=== PATIENT | female | born 1965 | race African-American/Black ===

== ENCOUNTER 2016-12-07 00:02 | Emergency (ER) | payer SELFPAY ==
[~2016-12-07] VITALS: Ht 167.6 cm; Wt 105.0 kg
[~2016-12-07 00:02] MED LIST: AUGMENTIN500 MG OR; CIPRO500 MG OR; LORTAB 1010 MG PO; LORTAB 5 OR; NAPROSYN500 MG PO; NEXIUM40 MG PO; NO; PREVPAC PO; PRILOSEC20 MG PO; PROTONIX20 M1 PO; TENORMIN PO; ULTRAM50 M1 PO
[2016-12-07 01:09] LABS: HEMATOCRIT 38.6 % (37.0-47.0); HEMOGLOBIN 13.1 g/dl (12.0-16.0); IMMATURE GRANULOCYTES 0.3 % (0.0-1.0); MEAN CELL VOLUME 88.9 fL CALC (80.0-100.0); MEAN CORPUSCULAR HGB 30.2 pG CALC (26.0-32.0); MEAN CORPUSCULAR HGB CONC 33.9 g/L CALC (32.0-36.0); NEUT# 3.56 thou/uL (2.00-7.15); RED BLOOD COUNT 4.34 mill/uL (4.20-5.60); RED CELL DISTRI WIDTH 13.6 % (11.5-15.5)
[2016-12-07 01:24] LABS: ALBUMIN 4.3 g/dL (3.2-5.0); ALKALINE PHOSPHATASE 81 u/l (38-126); AMYLASE 118 u/l (30-110); ANION GAP 15 (6-22 (CALC)); BILIRUBIN, TOTAL 0.5 mg/dL (0.0-1.4); BUN 13 mg/dL (7-17); BUN/CREATININE RATIO 18 (12-20 (CALC)); CALCIUM 9.7 mg/dL (8.4-10.2); CARBON DIOXIDE 25 mmol/l (22-30); CHLORIDE 107 mmol/l (95-108); CREATININE 0.7 mg/dL (0.5-1.0); GFR > 60 ML/MIN (>=60 (CALC)); GFR FOR AFR.AMER. > 60 ML/MIN (>=60 (CALC)); GLUCOSE 104 mg/dL (65-105); LIPASE 269 u/l (23-300); POTASSIUM 3.8 mmol/l (3.5-5.1); SGOT/AST 26 u/l (14-36); SGPT/ALT 30 u/l (9-52); SODIUM 143 mmol/l (137-146); TOTAL PROTEIN 8.5 g/dL (6.3-8.2)
[2016-12-07 01:26] LABS: ETHYL ALCOHOL < 10 mg/dl (0-30)
[2016-12-07 01:30] LABS: URINE BILIRUBIN - DIPSTICK NEGATIVE (NEGATIVE); URINE BLOOD DIPSTICK TRACE-LYSED (NEGATIVE); URINE CLARITY SLIGHT CLOUDY; URINE COLOR YELLOW; URINE GLUCOSE - DIPSTICK NEGATIVE (NEGATIVE); URINE KETONE NEGATIVE (NEGATIVE); URINE NITRITE - DIPSTICK NEGATIVE (Negative); URINE PH 6.5 (4.5-8.0); URINE PROTEIN - DIPSTICK NEGATIVE (NEG-TRACE); URINE UROBILINOGEN - DIPSTICK 0.2 E.U./dL (0.2)
[2016-12-07 01:34] LABS: URINE LEUK ESTERASE SMALL (NEGATIVE)
[2016-12-07 01:35] LABS: BARBITURATES NEGATIVE (NEGATIVE); COCAINE NEGATIVE (NEGATIVE); METHADONE NEGATIVE (NEGATIVE); OXCYCODONE NEGATIVE (NEGATIVE); TETRAHYDROCANNABIONOL POSITIVE (NEGATIVE); TRICYLIC ANTIDEPRESSANTS NEGATIVE (NEGATIVE)
[2016-12-07 01:43] LABS: URINE BACTERIA MODERATE hpf; URINE SQUAMOUS EPITHELIAL CELL FEW EPI/hpf (0-FEW)
[2016-12-07 06:58] VITALS: BP 184/84
== END 2016-12-07 06:58 | disposition short-term general hospital (02) | DRG 392 ==
LOC: ED 00:02
PROVIDERS: Emergency Medicine
DX: R10.13 Epigastric pain (principal); K80.20 Calculus of gallbladder without cholecystitis without obstruction; R10.11 Right upper quadrant pain; R11.2 Nausea with vomiting, unspecified
CPT/HCPCS: S0164

== ENCOUNTER 2019-02-03 09:26 | Observation (INO) | payer OTHER ==
[2019-02-03] VITALS (11 sets, daily range): BP systolic 144–190; BP diastolic 76–114
[~2019-02-03] VITALS: Ht 167.6 cm; Wt 105.0 kg
--- NOTE | 2019-02-03 09:47 | NUR ---
PATIENT TO ROOM VIA WHELCHAIR AND PHYSICIAN NOTIFIED OF PATIENT STATUS
[2019-02-03 10:17] LABS: HEMOGLOBIN 12.4 g/dl (12.0-16.0); IMMATURE GRANULOCYTES 0.5 % (0.0-5.0); MEAN CELL VOLUME 92.5 fL CALC (80.0-100.0); MEAN CORPUSCULAR HGB 30.2 pG CALC (26.0-32.0); MEAN CORPUSCULAR HGB CONC 32.6 g/L CALC (32.0-36.0); NEUT# 3.37 thou/uL (2.00-7.15); RED BLOOD COUNT 4.11 mill/uL (4.20-5.60); RED CELL DISTRI WIDTH 14.3 % (11.5-15.5)
--- NOTE | 2019-02-03 10:20 | NUR ---
PATIENT REPORTS CHEST PAIN X2 DAYS AGO TO RIGHT SIDE OF CHEST, STATES PAIN ONLY HAPPENED ONCE AND THEN WENT WAY, DENIES ANY CURRENT CHEST PAIN. REPORTS SOB AND PRODUCTIVE COUGH. HAS DIMINISHED LUNG SOUNDS TO BILATERAL LOWER LOBES. PATIENT UPDATED ON PLAN OF CARE. VERBAL UNDERSTANDING.
[2019-02-03 10:34] LABS: ALBUMIN 3.7 g/dL (3.2-5.0); BILIRUBIN, TOTAL 0.4 mg/dL (0.0-1.4); CREATININE 1.3 mg/dL (0.5-1.0); POTASSIUM 4.3 mmol/l (3.5-5.1)
[2019-02-03 10:35] LABS: TOTAL PROTEIN 6.7 g/dL (6.3-8.2)
[2019-02-03 10:39] LABS: D-DIMER 0.47 mg/L (0.19-0.60)
--- NOTE | 2019-02-03 11:25 | NUR ---
PATIENT TO CT SCAN.
--- NOTE | 2019-02-03 11:50 | NUR ---
PATIENT DENIES ANY CHEST PAIN SINCE ARRICAL TO ED. C/O SOB, PATIENT INFORMED OF ADMIT TO [facility] FOR FURTHER CARE, VERBAL UNERSTANDING. WILL CONTINUE TO MONITOR.
--- NOTE | 2019-02-03 11:51 | NUR ---
ATTEMPT MADE TO CALL REPORT, SPOKE TO JEFF. WILL HAVE NURSE CALL BACK.
--- NOTE | 2019-02-03 11:58 | NUR ---
REPORT CALLED TO SAMIRA TIWARI.
--- NOTE | 2019-02-03 12:09 | NUR ---
PATIENT TRANSPORTED TO [facility] VIA WHEELCHAIR. BELONGINGS SENT WITH PATIENT. NURSING AIDE AT BEDSIDE. CARE RELINQUSIHED TO SAMIRA TIWARI.
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
--- NOTE | 2019-02-03 15:50 | NUR ---
PT CALLED BRIDGE REPAIR CREW PERSON RENEE, ENTERED ROOM SAW PT FANNING HERSELF WITH HER HAND, UNDABLE TO TALK; TRIED TO GET VITALS, PT THEN STOOD UP AND GENTLY PUSH ME ASIDE AND CONTINUE TO FAN SELF BUT WOULD NOT SPEAK; 02 @4L ADMINISTERED; DR VELAZQUEZ TO TRF PT TO ICU; PT NOW IN BED 4; REPORT GIVEN TO DIANA VILLANUEVA
--- NOTE | 2019-02-03 16:00 | NUR ---
PT TRANSFERRED TO ICU BED 4 VIA W/C PT ABLE TO STAND AND TRASNFER FROM W/C TOBED WITH SBA, TOLERATED ACTITIVY WELL, PT SLIGHTLY ANXIOUS AND SHORT OF BREATH AT REST, O2 ON AT 4L VIA NC, LUNG SOUNDS DIMINHSED/TIGHT WITH SOME CRACKLES HEAR IN BILAT BASES, BS ACTIVE PT STATES SHE JUST FEELS FULL/BLOATED, AND THE SOB IS MAKING HER ANXIOUS/SCARED. NO EDEMA NOTED PPPB, SKIN WAR DRY AND INTACT, PT STATES SHE HAS AHISTORY OF HTN AND THAT SHE WAS DIAGNOSED 2 YRS AGO, TELE READING SR/ST RATE 90-110, BP ELEVATED, NOTIFIED, ORIENTED TO ROOM AND UNIT, ALL MONITORING EQUIPMENT EXPLAINED PRIOR TO APPLICATION, COMFORT MEASURES PROVIDED, FAN PLACED ON PT FOR SOB AND ANXIETY, CALL DURAN WITHIN REACH, 20G SALINE LOCK INTACT IN LEFT AC, WILL CONTINUE TO MONITOR
--- NOTE | 2019-02-03 16:37 | NUR ---
MEDICATED WITH ATIVAN IV ORDERED, GOOD ASPIRATE NOTED PRE AND POST MEDICATED, O2 REMAINS ON AT 4L VIA NC, NEB TREATMENT COMPLETED AND PT STATES THAT IT HELPED "ALOT" RESPS LESS LABORED, AND PT APPEARS LESS ANXIOUS WITH RESPS LESS LABORED. WILL CONTINUE TO MONITOR.
--- NOTE | 2019-02-03 16:38 | NUR ---
PT ALKING ON PERSONAL CELL PHONE INTERMITTENTLY. CALL DURAN WITHIN REACH, TELE READING SR RATE 95, BP 149/82 APPEARS CALM, WILL CONTINUE TO MONITOR.
--- NOTE | 2019-02-03 16:55 | NUR ---
BEDSIDE REPORT RECEIVED FROM DIANA VILLANUEVA.
--- NOTE | 2019-02-03 16:56 | NUR ---
PT OOB TO BSC WITH MIN ASSIST, MILD EXERTIONAL SOB NOTED, CALLBELL WITHIN REACH.
--- NOTE | 2019-02-03 17:04 | NUR ---
PT BACK TO BED WITH SBA, TOLERATED ACTIVITY WELL, CALL DURAN WITHIN REACH, EXERTIONAL DYSPNEA NOTED WITH RECOVERY NOTED AFTER REST. O2 REMAINS ON AT 4L VIA NC, WILL CONTINUE TO MONITOR,..
--- NOTE | 2019-02-03 17:32 | NUR ---
VISITOR AT BEDSIDE
--- NOTE | 2019-02-03 19:09 | NUR ---
INFORMATION TECHNOLOGY ADMINISTRATOR AT BEDSIDE.
--- NOTE | 2019-02-03 20:04 | NUR ---
ASSESSMENT COMPLETE. PT UP TO BSC TO VOID. PT DENIES PAIN CURRENTLY. STATES THAT SHE FEELS MUCH BETTER AFTER THE BREATHING TREATMENT. RESPIRATIONS EVEN AND UNLABORED ON ROOM; PT REMOVED OXYGEN. LUNGS ARE CLEAR. PLAN OF CARE REVIEWED. PT ENCOURAGED TO VERBALIZE CONCERNS. STATES UNDERSTANDING. SAFETY MEASURES IN PLACE. CALL LIGHT WITHIN REACH.
--- NOTE | 2019-02-03 20:25 | NUR ---
BLOOD PRESSURE SLIGHTLY ELEVATED; WILL ADMINISTER HS BP MEDS. PT REAPPLIED OXYGEN. SNACK PROVIDED PER PT REQUEST.
--- NOTE | 2019-02-03 21:25 | NUR ---
RT AT BEDSIDE FOR BREATHING TREATMENT.
--- NOTE | 2019-02-03 22:52 | NUR ---
UP TO BSC. REQUESTING ANOTHER SNACK.
[2019-02-04] VITALS (9 sets, daily range): BP systolic 113–161; BP diastolic 68–95
--- NOTE | 2019-02-04 00:56 | NUR ---
PT ASLEEP AT THIS TIME WITH NO SIGNS OF DISTRESS. RESPIRATIONS EVEN AND UNLABORED ON OXYGEN VIA NC. USES CALL LIGHT PRN FOR ASSISTANCE; OTHERWISE INDEPENDENT. IV SITE TO LAC APPEARS HEALTHY AND FLUSHES. SAFETY MEASURES IN PLACE. CALL LIGHT WITHIN REACH.
--- NOTE | 2019-02-04 04:02 | NUR ---
BLOOD PRESSURE DOWN TO 140/90. REMAINS SINUS RHYTHM ON BAKERY DEMONSTRATOR HEART RATE IN THE 60'S. NO ACUTE CHANGES IN CONDITION THROUGHT THE NIGHT. SAFETY MEASURES IN PLACE. CALL LIGHT WITHIN REACH.
--- NOTE | 2019-02-04 05:30 | NUR ---
LAB AT BEDSIDE.
--- NOTE | 2019-02-04 06:00 | NUR ---
RT AT BEDSIDE FOR BREATHING TREATMENT.
[2019-02-04 06:06] LABS: HEMATOCRIT 39.4 % (37.0-47.0); HEMOGLOBIN 12.9 g/dl (12.0-16.0); IMMATURE GRANULOCYTES 0.5 % (0.0-5.0); MEAN CELL VOLUME 91.6 fL CALC (80.0-100.0); MEAN CORPUSCULAR HGB CONC 32.7 g/L CALC (32.0-36.0); NEUT# 6.32 thou/uL (2.00-7.15); RED BLOOD COUNT 4.3 mill/uL (4.20-5.60)
[2019-02-04 06:24] LABS: ALBUMIN 3.7 g/dL (3.2-5.0); ALKALINE PHOSPHATASE 59 u/l (38-126); AMYLASE 77 u/l (30-110); ANION GAP 12 (6-22 (CALC)); BILIRUBIN, TOTAL 0.4 mg/dL (0.0-1.4); BUN 18 mg/dL (7-17); BUN/CREATININE RATIO 23 (12-20 (CALC)); CARBON DIOXIDE 22 mmol/l (22-30); CHLORIDE 109 mmol/l (95-108); CREATININE 0.8 mg/dL (0.5-1.0); GFR > 60 ML/MIN (>=60 (CALC)); GFR FOR AFR.AMER. > 60 ML/MIN (>=60 (CALC)); LIPASE 76 u/l (23-300); MAGNESIUM 1.9 mg/dL (1.6-2.3); POTASSIUM 4.8 mmol/l (3.5-5.1); SGOT/AST 21 u/l (14-36); SODIUM 138 mmol/l (137-146); TOTAL PROTEIN 6.9 g/dL (6.3-8.2)
--- NOTE | 2019-02-04 06:39 | NUR ---
IV SITE TO LAC INFILTRATED DURING AM SOLUMEDROL; SITE D/C'D AND SITE PLACED TO ANTERIOR LEFT WRIST.
--- NOTE | 2019-02-04 06:55 | NUR ---
REPORT RECVD FROM DIANA SALAS AT START OF SHIFT.
--- NOTE | 2019-02-04 07:36 | NUR ---
PT A&Ox4. DENIES ANY PAIN OR PRESSURE. DENIES SOB. BREATHING EVEN/UNLABORED, LUNGS CTA. DENIES COUGH. SR ON TELE. STRONG PULSES x4. NO EDEMA. -3 SEC CAP REFILL. ALVAREZ. SKIN WARM/DRY. ABD SOFT/NONTENDER, ACTIVE BS. DENIES GI ABNORMALITY. NO NEURO DEFICIENCIES NOTED. PT APPEARS HAPPY; STATES SHES READY TO GO HOME TODAY. ASKED WHEN MD WITH MAKE ROUNDS. CALLBELL W/IN REACH. PT WATCHING TV AT THIS TIME.
--- NOTE | 2019-02-04 08:01 | NUR ---
PT SITTING UP IN BED, EATING BREAKFAST.
--- NOTE | 2019-02-04 08:31 | NUR ---
DIETARY @BEDSIDE FOR MEAL PREFERENCES.
--- NOTE | 2019-02-04 08:55 | NUR ---
PT C/O PAIN ALL ACROSS LOWER CHEST. STATES IT COMES & GOES. CANT DESCRIBE PAIN JUST THAT "SHE DOESNT LIKE IT". DENIES HEARTBURN. REQUESTS MED TO HELP HER RELAX. PT MEDICATED WITH ATIVAN. ADVISED TO CALL STAFF IF PAIN WORSENS.
--- NOTE | 2019-02-04 09:18 | NUR ---
RT @BEDSIDE FOR BREATHING TREATMENT.
--- NOTE | 2019-02-04 09:41 | NUR ---
DR SOMERS @BEDSIDE WITH PT.
--- NOTE | 2019-02-04 10:25 | NUR ---
PT C/O BURNING TO LW IV SITE. NEW IV ESTABLISHED TO RW. DENIES BURNING. "FEELS GOOD". NICOTENE PATCH APPLIED TO RIGHT UPPER ARM.
--- NOTE | 2019-02-04 10:36 | NUR ---
PT UP TO BSC WITH STEADY GAIT.
--- NOTE | 2019-02-04 11:19 | NUR ---
PT SITTING UP IN BED, EATING LUNCH. CALLED CAFE FOR SIDE SALAD. PT DENIES CP/SOB AT THIS TIME.
--- NOTE | 2019-02-04 12:03 | NUR ---
PHARMACY STATES IV ABX ON THEIR WAY TO FLOOR.
--- NOTE | 2019-02-04 12:31 | NUR ---
AZYTHROMCIN RUNNING AT 125ml/HR D/T PTS ANXIETY RE: SAME MED YESTERDAY. PT AWARE PRN ATIVAN NOT DUE AGAIN UNTIL 1500. PT STATES SHE IS GOING TO STOP SMOKING AND DOING DRUGS BC SHES NOT GONNA YET.
--- NOTE | 2019-02-04 12:43 | NUR ---
PT UP TO BSC.
--- NOTE | 2019-02-04 13:15 | NUR ---
SON @BEDSIDE WITH PT.
--- NOTE | 2019-02-04 14:22 | NUR ---
MD NOTIFIED OF PTS C/O PAIN TO EPIGASTRIC AREA. PT LAYING ON LEFT SIDE, FOWLERS. WAITING NEW ORDERS.
--- NOTE | 2019-02-04 14:37 | NUR ---
VLAD ARROYO, @BEDSIDE FOR CONSULT.
--- NOTE | 2019-02-04 14:59 | NUR ---
PT DENIES ANY ABD OR CP AT THIS TIME. PER PT, "IM GOOD". PT REQUESTED ICE CREAM.
--- NOTE | 2019-02-04 15:29 | NUR ---
MALE VISITOR LAYING IN BED WITH PT. PT LAUGHING & PLAYFUL. NO S/S OF DISTRESS. WILL CONTINUE TO MONITOR.
--- NOTE | 2019-02-04 16:56 | NUR ---
PT RESTING IN BED. CALLBELL W/IN REACH. VSS. NO S/S OF DISTRESS. WILL CONTINUE TO MONITOR.
--- NOTE | 2019-02-04 17:36 | NUR ---
rt @bedside for breathing treatment.
--- NOTE | 2019-02-04 17:49 | NUR ---
PT SITTING UP IN BED, EATING DINNER. SALAD PLACED IN NOURISHMENT FRIDGE FOR "LATER". PT GIVEN ANOTHER FULL PITCHER OF ICE.
--- NOTE | 2019-02-04 19:00 | NUR ---
BEDSIDE REPORT RECEIVED FROM DIANA PRADO.
--- NOTE | 2019-02-04 19:49 | NUR ---
ASSESSMENT COMPLETE AND WNL; LUNGS CLEAR. PT DENIES PAIN. RESPIRATIONS EVEN AND UNLABORED ON ROOM AIR. VS STABLE. PLAN OF CARE REVIEWED. PT ENCOURAGED TO VERBALIZE CONCERNS. STATES UNDERSTANDING. SAFETY MEASURES IN PLACE. CALL LIGHT WITHIN REACH.
--- NOTE | 2019-02-04 21:27 | NUR ---
HS MEDICATIONS GIVEN. PT REQUESTED HER SALAD; PROVIDED. IV SITE TO RIGHT WRIST APPEARS HEALTHY AND FLUSHES. NO OTHER REQUESTS OR CONCERNS AT THIS TIME.
--- NOTE | 2019-02-04 22:40 | NUR ---
RT AT BEDSIDE FOR BREATHING TREATMENT.
--- NOTE | 2019-02-05 00:32 | NUR ---
PT ASLEEP AT THIS TIME WITH NO SIGNS OF DISTRESS. RESPIRATIONS EVEN AND UNLABORED ON ROOM AIR. INDEPENDENT TO BSC. SAFETY MEASURES IN PLACE. CALL LIGHT WITHIN REACH.
[2019-02-05 04:00] VITALS: BP 120/79
--- NOTE | 2019-02-05 04:09 | NUR ---
RT AT BEDSIDE FOR BREATHING TREATMENT.
--- NOTE | 2019-02-05 04:27 | NUR ---
LAB AT BEDSIDE.
[2019-02-05 05:55] LABS: HEMOGLOBIN 12.8 g/dl (12.0-16.0); IMMATURE GRANULOCYTES 0.6 % (0.0-5.0); MEAN CELL VOLUME 92.2 fL CALC (80.0-100.0); MEAN CORPUSCULAR HGB 30.3 pG CALC (26.0-32.0); MEAN CORPUSCULAR HGB CONC 32.8 g/L CALC (32.0-36.0); NEUT# 11.31 thou/uL (2.00-7.15); RED BLOOD COUNT 4.23 mill/uL (4.20-5.60); RED CELL DISTRI WIDTH 14.3 % (11.5-15.5)
[2019-02-05 06:14] LABS: ALBUMIN 3.8 g/dL (3.2-5.0); ALKALINE PHOSPHATASE 60 u/l (38-126); ANION GAP 13 (6-22 (CALC)); BILIRUBIN, TOTAL 0.3 mg/dL (0.0-1.4); BUN 28 mg/dL (7-17); BUN/CREATININE RATIO 31 (12-20 (CALC)); CARBON DIOXIDE 22 mmol/l (22-30); CHLORIDE 107 mmol/l (95-108); CREATININE 0.9 mg/dL (0.5-1.0); GFR > 60 ML/MIN (>=60 (CALC)); GFR FOR AFR.AMER. > 60 ML/MIN (>=60 (CALC)); POTASSIUM 4.8 mmol/l (3.5-5.1); SGOT/AST 16 u/l (14-36); SODIUM 137 mmol/l (137-146); TOTAL PROTEIN 6.9 g/dL (6.3-8.2)
--- NOTE | 2019-02-05 07:15 | NUR ---
pt awake in bed; no apparent distress noted; pt offers no complaints; assessment completed at this time; pt alert and oriented; denies pain; resp even and unlabored; no sob noted; lungs clear; skin color wnl; ra; national account executive dry cough noted; hr reg; strong pulses; no edema noted; sr on monitor; abd soft with bs present; no bm noted per writer producer; no urine to inspect at this time; bsc; #22 to rw flushed and patent; no redness or edema noted at site; plan of care/ am meds explained; call light within reach; will continue to monitor
--- NOTE | 2019-02-05 08:05 | NUR ---
awake in bed eating breakfast; no apparent distress noted; pt offers no complaints; call light within reach; will continue to monitor
[2019-02-05 08:27] VITALS: BP 134/79
--- NOTE | 2019-02-05 08:35 | NUR ---
Dr Oneill present at bedside to assess pt and discuss plan of care
[2019-02-05] MEDS ORDERED: MEDDOSEPAK PO (08:46)
[2019-02-05] MEDS ORDERED: FUROSEMIDE20 MG PO (08:46)
[2019-02-05] MEDS ORDERED: ZITHROMAX250 MG PO (08:46)
[2019-02-05] MEDS ORDERED: COREG12.5 MG PO (08:46)
[2019-02-05] MEDS ORDERED: ZESTRIL/PRIN5 MG/TA1 PO (08:46)
[2019-02-05] MEDS ORDERED: XANAX0.25 MG PO (08:46)
[2019-02-05] MEDS ORDERED: ASPIRINCHW 81MG PO (08:50)
[2019-02-05] MEDS ORDERED: LIPITOR10 M1 PO (08:51)
--- NOTE | 2019-02-05 09:10 | NUR ---
awake; iv site covered for shower; pt able to ambulate to med surg room 276 accompanied by this commercial underwriter in stable condition; no resp distress/ shortness of breath noted; portable pulse ox reading between 94-99% with activity; max hr 104 with activity; will continue to monitor
--- NOTE | 2019-02-05 10:03 | NUR ---
awake in bed; offers no complaints; no appaent distress noted; resp even and unlabored; pt denies needs; call light within reach; will continue to monitor
[2019-02-05 11:14] VITALS: BP 140/91
--- NOTE | 2019-02-05 11:20 | NUR ---
discharge instructions reviewed in great detail; Rx provided; all questions answered to specifications writer's best ability; IV removed from rw with catheter tip intact; sr on monitor; will continue to monitor
--- NOTE | 2019-02-05 11:48 | NUR ---
Discharge instructions given. Patient verbalizes understanding of same. Discharged in stable condition via Wheelchair to Home with family. All belongings sent with pt.
== END 2019-02-05 11:48 | disposition home or self-care (01) ==
LOC: ED 09:26 → ED-I 10:45 → ED 11:31 → ICU 11:32 → MS2 11:32 → ICU 15:52
PROVIDERS: Emergency Medicine; ADMIT Internal Medicine Nephrology; ATTEND Internal Medicine Nephrology
DX: I11.0 Hypertensive heart disease with heart failure (principal); I50.21 Acute systolic (congestive) heart failure; I42.0 Dilated cardiomyopathy; N17.9 Acute kidney failure, unspecified; J44.1 Chronic obstructive pulmonary disease with (acute) exacerbation; I08.1 Rheumatic disorders of both mitral and tricuspid valves; F14.90 Cocaine use, unspecified, uncomplicated; F41.9 Anxiety disorder, unspecified; E66.9 Obesity, unspecified; M19.90 Unspecified osteoarthritis, unspecified site; F17.200 Nicotine dependence, unspecified, uncomplicated; Z68.37 Body mass index [BMI] 37.0-37.9, adult; R07.89 Other chest pain
CPT/HCPCS: G0378; J2060

== ENCOUNTER 2020-05-21 00:03 | Emergency (ER) | payer OTHER ==
[~2020-05-21] VITALS: Ht 167.6 cm; Wt 115.0 kg
[~2020-05-21 00:03] MED LIST changes: +ASPIRINCHW 81MG PO; +COREG12.5 MG PO; +FUROSEMIDE20 MG PO; +LIPITOR10 M1 PO; +MEDDOSEPAK PO; +XANAX0.25 MG PO; +ZESTRIL/PRIN5 MG/TA1 PO; +ZITHROMAX250 MG PO
--- NOTE | 2020-05-21 00:27 | NUR ---
BREATHING TREATMENT GIVEN BACK TO BACK. BREATHING TECH. FOR GOOD DEPOSITION TO THE LUNGS.
[2020-05-21 00:43] LABS: ALBUMIN 3.8 g/dL (3.2-5.0); CREATININE 1.2 mg/dL (0.5-1.0); POTASSIUM 4.4 mmol/l (3.5-5.1); TOTAL PROTEIN 6.9 g/dL (6.3-8.2)
[2020-05-21 00:44] LABS: BILIRUBIN, TOTAL 0.5 mg/dL (0.0-1.4)
[2020-05-21 00:47] LABS: HEMATOCRIT 37.3 % (37.0-47.0); HEMOGLOBIN 11.8 g/dl (12.0-16.0); IMMATURE GRANULOCYTES 0.3 % (0.0-5.0); MEAN CELL VOLUME 92.1 fL CALC (80.0-100.0); MEAN CORPUSCULAR HGB 29.1 pG CALC (26.0-32.0); MEAN CORPUSCULAR HGB CONC 31.6 g/dL CAL (32.0-36.0); NEUT# 2.15 thou/uL (2.00-7.15); RED BLOOD COUNT 4.05 mill/uL (4.20-5.60); RED CELL DISTRI WIDTH 14.6 % (11.5-15.5)
[2020-05-21] MEDS ORDERED: PREDNISONE50 MG PO ×2 (02:29)
[2020-05-21] MEDS ORDERED: DOXYCYCL HYC100 MG PO ×2 (02:29)
[2020-05-21 02:46] VITALS: BP 153/80
== END 2020-05-21 02:46 | disposition home or self-care (01) ==
LOC: ED 00:03
PROVIDERS: Family Medicine
DX: J44.1 Chronic obstructive pulmonary disease with (acute) exacerbation (principal); I10 Essential (primary) hypertension; F17.200 Nicotine dependence, unspecified, uncomplicated; Z20.828 Contact with and (suspected) exposure to other viral communicable diseases

== ENCOUNTER 2020-06-13 22:43 | Emergency (ER) | payer OTHER ==
[~2020-06-13] VITALS: Ht 167.6 cm; Wt 105.0 kg
[~2020-06-13 22:43] MED LIST changes: +DOXYCYCL HYC100 MG PO; +PREDNISONE50 MG PO
[2020-06-13 23:32] LABS: HEMATOCRIT 40.3 % (37.0-47.0); HEMOGLOBIN 12.8 g/dl (12.0-16.0); IMMATURE GRANULOCYTES 0.3 % (0.0-5.0); MEAN CELL VOLUME 91.6 fL CALC (80.0-100.0); MEAN CORPUSCULAR HGB 29.1 pG CALC (26.0-32.0); MEAN CORPUSCULAR HGB CONC 31.8 g/dL CAL (32.0-36.0); NEUT# 2.87 thou/uL (2.00-7.15); RED BLOOD COUNT 4.4 mill/uL (4.20-5.60); RED CELL DISTRI WIDTH 14.6 % (11.5-15.5)
[2020-06-13 23:50] LABS: ALBUMIN 3.5 g/dL (3.2-5.0); BILIRUBIN, TOTAL 0.5 mg/dL (0.0-1.4); CREATININE 1.4 mg/dL (0.5-1.0); POTASSIUM 3.9 mmol/l (3.5-5.1); TOTAL PROTEIN 6.4 g/dL (6.3-8.2)
[2020-06-14] MEDS ORDERED: OMEPRAZOLE DR40 MG (00:02)
[2020-06-14] MEDS ORDERED: COZAAR50 MG PO (00:04)
[2020-06-14] MEDS ORDERED: PREDNISONE50 MG PO (00:08)
[2020-06-14] MEDS ORDERED: DOXYCYC MONO100 M2 PO (00:08)
[2020-06-14] MEDS ORDERED: ALPRAZOLAM1 MG PO (00:13)
[2020-06-14] MEDS ORDERED: PAROXETINE20 MG PO (00:14)
[2020-06-14 01:05] VITALS: BP 150/99
== END 2020-06-14 01:05 | disposition short-term general hospital (02) ==
LOC: ED 22:43
PROVIDERS: Emergency Medicine
DX: I21.4 Non-ST elevation (NSTEMI) myocardial infarction (principal); I50.9 Heart failure, unspecified; J43.9 Emphysema, unspecified; T50.996A Underdosing of other drugs, medicaments and biological substances, initial encounter; Z91.128 Patient's intentional underdosing of medication regimen for other reason; T42.4X6A Underdosing of benzodiazepines, initial encounter; F17.290 Nicotine dependence, other tobacco product, uncomplicated; Z20.828 Contact with and (suspected) exposure to other viral communicable diseases

== ENCOUNTER 2020-10-15 16:07 | Emergency (ER) | payer OTHER ==
[~2020-10-15] VITALS: Ht 167.6 cm; Wt 101.0 kg
[~2020-10-15 16:07] MED LIST changes: +ALPRAZOLAM1 MG PO; +COZAAR50 MG PO; +DOXYCYC MONO100 M2 PO; +OMEPRAZOLE DR40 MG; +PAROXETINE20 MG PO
[2020-10-15 16:14] VITALS: BP 165/114
[2020-10-15 17:04] LABS: HEMOGLOBIN 13.4 g/dl (12.0-16.0); IMMATURE GRANULOCYTES 0.4 % (0.0-5.0); MEAN CELL VOLUME 93.7 fL CALC (80.0-100.0); MEAN CORPUSCULAR HGB 29.2 pG CALC (26.0-32.0); MEAN CORPUSCULAR HGB CONC 31.2 g/dL CAL (32.0-36.0); NEUT# 3.31 thou/uL (2.00-7.15); RED BLOOD COUNT 4.59 mill/uL (4.20-5.60); RED CELL DISTRI WIDTH 16.9 % (11.5-15.5)
[2020-10-15 17:17] LABS: ALBUMIN 4.2 g/dL (3.2-5.0); BILIRUBIN, TOTAL 0.6 mg/dL (0.0-1.4); CREATININE 1.5 mg/dL (0.5-1.0)
[2020-10-15 17:18] LABS: POTASSIUM 4.7 mmol/l (3.5-5.1); TOTAL PROTEIN 7.7 g/dL (6.3-8.2)
== END 2020-10-15 17:50 | disposition left against medical advice (07) ==
LOC: ED 16:07
PROVIDERS: Family Medicine
DX: R06.02 Shortness of breath (principal); F41.9 Anxiety disorder, unspecified; I10 Essential (primary) hypertension; J44.9 Chronic obstructive pulmonary disease, unspecified; I25.2 Old myocardial infarction; Z91.19 Patient's noncompliance with other medical treatment and regimen

== ENCOUNTER 2021-04-14 17:11 | Observation (INO) | payer OTHER ==
[~2021-04-14] VITALS: Ht 167.6 cm; Wt 108.0 kg
[~2021-04-14 17:11] MED LIST changes: +OMEPRAZOLE DR20 MG PO; -OMEPRAZOLE DR40 MG
--- NOTE | 2021-04-14 17:11 | NUR ---
PATIENT TO ROOM VIA EMS AND PHYSICIAN NOTIFIED OF PATIENT STATUS
[2021-04-14 18:37] LABS: HEMATOCRIT 34.2 % (37.0-47.0); HEMOGLOBIN 11.1 g/dl (12.0-16.0); IMMATURE GRANULOCYTES 1.5 % (0.0-5.0); MEAN CELL VOLUME 95.5 fL CALC (80.0-100.0); MEAN CORPUSCULAR HGB CONC 32.5 g/dL CAL (32.0-36.0); NEUT# 8.21 thou/uL (2.00-7.15); RED BLOOD COUNT 3.58 mill/uL (4.20-5.60); RED CELL DISTRI WIDTH 14.3 % (11.5-15.5)
[2021-04-14 18:54] LABS: ALBUMIN 3.6 g/dL (3.2-5.0); BILIRUBIN, TOTAL 0.5 mg/dL (0.0-1.4); CREATININE 2.1 mg/dL (0.5-1.0); POTASSIUM 3.4 mmol/l (3.5-5.1); TOTAL PROTEIN 6.8 g/dL (6.3-8.2)
--- NOTE | 2021-04-14 19:20 | NUR ---
SEEN PT AT BEDSIDE , ASKED FOR A UA, PT STARTED SNORING DURING CONVERSTION
--- NOTE | 2021-04-14 19:55 | NUR ---
ATTE,PTED TO REAPPLY BP CUFF PT REFUSED STATING IT WAS TOO TIGHT, REFUSED COVID SWAB
--- NOTE | 2021-04-14 19:58 | NUR ---
PT REFUSES TO LET ME PLACE BP CUFF APPROPRIATELY TO TAKE A BP. 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
--- NOTE | 2021-04-14 20:20 | NUR ---
PT UNHOOKED HERSELF FROM MONITOR AND WENT TO RESTROOM, DID NOT PROVIDE REQUESTED UA, DID ALLOW ME TO HOOK HER BACK UP TO MONITOR. VERABLLY DISAGREEABLE TO ALL REQUESTS
--- NOTE | 2021-04-14 21:34 | NUR ---
PT COMPLYING WITH TREATMENT, EATING AND DRINKING FOOD, PROVIDER AT [facility]
--- NOTE | 2021-04-14 22:53 | NUR ---
PT UP TO RESTROOM, GIVEN NEW GOWN, LINEN CHANGE AND PROVIDED WITH CUP FOR ua
[2021-04-14 23:41] LABS: URINE BILIRUBIN - DIPSTICK NEGATIVE (NEGATIVE); URINE BLOOD DIPSTICK NEGATIVE (NEGATIVE); URINE COLOR YELLOW; URINE GLUCOSE - DIPSTICK NEGATIVE (NEGATIVE); URINE KETONE NEGATIVE (NEGATIVE); URINE LEUK ESTERASE NEGATIVE (NEGATIVE); URINE PROTEIN - DIPSTICK 30 mg/dL (NEG-TRACE); URINE SPECIFIC GRAVITY >=1.030; URINE UROBILINOGEN - DIPSTICK 0.2 E.U./dL (0.2)
[2021-04-14 23:48] LABS: URINE NITRITE - DIPSTICK NEGATIVE (Negative)
[2021-04-14 23:54] LABS: URINE EPITHELIAL CELLS MANY EPI/hpf (0-FEW)
[2021-04-14 23:55] LABS: URINE BACTERIA FEW hpf
--- NOTE | 2021-04-15 01:44 | NUR ---
PT SLEEPING, PLACED ON TELE BOX. NO S/S OF DISTRESS NOTED
--- NOTE | 2021-04-15 03:08 | NUR ---
PT RESTING WITH EYES CLOSED DROWSY SINCE ARRIVAL AND NODS OFF EASILY DURINGINTERVIEW, BUT AROUSES TO VERBAL STIMULI, PT ALERT ADN ORIENTED STATES SHE HAD A SYNCOPAL EPISODE WHILE ON THE TOILET JUST PRIOR TO ARRIVAL TOER, THEN HYPOTENISVE FOR FIRST BIT OF ER VISIT. PT CURRENTLY AFEBRILE AND NORMO TESNIVE WITH NO COMPLAINTS, EXCEPT HUNGER, (SNACK PROVIDED IN ER) CALL RENEE CASILLAS, OFFERS NO COMPLAINTS REFUSES TELE IN ER, WILL CONTINUE TO MONITOR.
[2021-04-15] MEDS ORDERED: BACLOFEN20 MG PO (05:24)
[2021-04-15] MEDS ORDERED: LIPITOR40 M1 PO (05:24)
[2021-04-15] MEDS ORDERED: CARVEDILOL25 MG PO (05:24)
[2021-04-15] MEDS ORDERED: GABAPENTIN300 M2 PO (05:25)
[2021-04-15] MEDS ORDERED: LASIX 40 MG TAB40 MG PO (05:26)
[2021-04-15] MEDS ORDERED: APRESOLINE50 MG PO (05:27)
[2021-04-15] MEDS ORDERED: ISOSORBIDE DINI20 MG PO (05:37)
--- NOTE | 2021-04-15 06:18 | NUR ---
PT AWAKE, DENIES NEEDS, BELONGINS SHEET FOR ADMISSION COMPLETED
--- NOTE | 2021-04-15 06:48 | NUR ---
REPORT CALLED TO SAMIRA ROWELL
--- NOTE | 2021-04-15 07:00 | NUR ---
RECIEVED REPORT FROM DIANA VILLANUEVA
--- NOTE | 2021-04-15 07:23 | NUR ---
PT ARRIVED TO [facility] ROOM 264 VIA STRETCHER ACCOMPAINED BY ER STAFF. PT IS A/O X3. ASSESSMENT AND VITALS COMPLETED. BP 124/64, HR 61, O2 100% ON ROOM AIR. RESPIRATIONS ARE EVEN AND UNLABORED WITH NO DISTRESS NOTED. LUNG SOUNDS ARE CLEAR. HEART RHYTHM NORMAL WITH TELE IN PLACE, 8614. BOWEL SOUNDS ARE ACTIVE. LBM 04/15/21. RADIAL AND PEDAL PULSES STRONG.#20G EMS LW INFUSING WITH IVF PER ORDER, SITE REMAINS HEALTHY AND PATNET. SKIN INTACT. PT DENIES OF ANY PAINS AT THIS TIME. PT REQUEST FOR ADDITONAL TRAY, ICE, WATER AND EXTRA PILLOW. ALL PROVIDED. PT DENIES OF ANY ADDITIONAL NEEDS.PT ORIENTED TO ROOM AND CALL SYSTEM. ALLERGY BAND APPLIED. PT DENIES OF ANY ALLERGIES. ALL SAFETY PRECAUTIONS ARE IN PLACE WITH CALL LIGHT IN REACH. WILL CONTINUE TO MONITOR.
[2021-04-15 08:12] VITALS: BP 124/64
[2021-04-15 08:51] LABS: HEMATOCRIT 37.1 % (37.0-47.0); HEMOGLOBIN 11.7 g/dl (12.0-16.0); IMMATURE GRANULOCYTES 0.5 % (0.0-5.0); MEAN CELL VOLUME 97.9 fL CALC (80.0-100.0); MEAN CORPUSCULAR HGB 30.9 pG CALC (26.0-32.0); MEAN CORPUSCULAR HGB CONC 31.5 g/dL CAL (32.0-36.0); NEUT# 5.27 thou/uL (2.00-7.15); RED BLOOD COUNT 3.79 mill/uL (4.20-5.60); RED CELL DISTRI WIDTH 14.4 % (11.5-15.5)
[2021-04-15 09:11] LABS: ALBUMIN 3.4 g/dL (3.2-5.0); BILIRUBIN, TOTAL 0.4 mg/dL (0.0-1.4); CREATININE 1.5 mg/dL (0.5-1.0); POTASSIUM 3.7 mmol/l (3.5-5.1); TOTAL PROTEIN 6.7 g/dL (6.3-8.2)
--- NOTE | 2021-04-15 10:08 | NUR ---
DR MELISSA AT BEDSIDE
--- NOTE | 2021-04-15 10:42 | NUR ---
PT COMPLAINS OF SHARP PAIN IN LEFT LEG. FEXIRIL ADMINISTERED. PT TOLERATED WELL. PT DENIES OF ANY ADDITIONAL NEEDS AT THIS TIME. ALL SAFETY PRECAUTIONS ARE IN PLACE WITH CALL LIGHT IN REACH. WILL CONTINUE TO MONITOR.
--- NOTE | 2021-04-15 11:39 | NUR ---
LAB AT BEDSIDE TO COLLECT BLOOD DRAW. PT UP TO BATHROOM TO URINATE. PT BACK TO BED. PT CRYING SAYING THAT FLEXIRIL WAS TO STRONG.PT REQUEST FOOD. REPEATER CHIEF INFORMED PT THAT LUNCH WAS ON ITS WAY. PT THEN STARTS TO CRY AND STATES " IT FEELS WEIRD." POINTING TO THROAT. PT UNABLE TO DESCRIBE WEID FEELING. PT REFUSES LAB UNTIL FEELING BETTER. NOTIFIED. NEW ORDERS TO BE OBTAIN.
--- NOTE | 2021-04-15 12:16 | NUR ---
PT RESTING IN SEMI FOWLERS POSITION. PT STATES SHE STILL FEELS " A LITTLE WEIRD." PT CONTINUES TO POINT TO THROAT. LUNCH TRAY AT BEDSIDE. PT ATE 100%.TELE MONITORING IN PLACE. PT DENIES OF ANY PAINS AT THIS TIME. PT AGREES TO ALLOW LAB TO COLLECT BLOOD. LAB CONTACT. ALL SAFETY PRECAUTIONS ARE IN PLACE WITH CALL LIGHT IN REACH. WILL CONTINUE TO MONITOR.
[2021-04-15] MEDS ORDERED: XANAX0.25 MG PO (13:14)
[2021-04-15 14:40] VITALS: BP 123/69
--- NOTE | 2021-04-15 15:58 | NUR ---
PT SLEEPING IN SEMI FOWLERS POSITION. RESPIRATIONS ARE EVEN AND UNLABORED WITH NO DISTRESS NOTED. #20G EMS LW INFUSING WITH IVF PER ORDER, SITE REMAINS HEALTHY AND PATENT. TELE MONITORING IN PLACE. PT DENIES OF ANY PAINS OR DISCOMFORTS AT THIS TIME. ALL SAFETY PRECAUTIONS ARE IN PLACE WITH CALL LIGHT IN REACH. WILL CONTINUE TO MONITOR.
[2021-04-15 18:35] VITALS: BP 134/73
--- NOTE | 2021-04-15 19:50 | NUR ---
PT CALLED ASKING FOR "MY SANDWICHES." SHE REPORTED THAT SHE WAS TOLD BY DIETARY AND THE DAY NURSE THAT THEY WERE GOING TO BRING HER SANDWICHES FOR OVERNIGHT. WE INFORMED HER THAT THERE WERE NO SANDWICHES AVAILABLE. SHE AGREED TO A TV DINNER TO BE WARMED AND BROUGHT. PT REPORTS THAT SHE HAS ONLY "PEED ONCE TODAY." BLADDER DOES NOT FEEL DISTENDED AT THIS TIME, PT DENIES TENDERNESS TO SITE. I ASKED HER IF WE COULD BLADDER SCAN HER TO SEE IF SHE NEEDS A CATHETER TO DRAIN THE URINE, SHE REFUSED TO BE SCANNED STATING "I WON'T GET THAT THING." WILL CONTINUE TO MONITOR FOR OUTPUT. GINGERALE, ICE AND TV MEAL PROVIDED AT THIS TIME. DENIES ANY OTHER NEEDS AT THIS TIME. IVF TURNED TO 50MLS PER HOUR ORDERS CALLED FOR AT THIS TIME.
--- NOTE | 2021-04-15 20:00 | NUR ---
PT APPEARS TO BE SLEEPING, SONOROUS SOUNDS WERE HEARED I ENTERED THE ROOM. RESP EVEN NON-LABORED. PT AWOKE TO MY VOICE.
--- NOTE | 2021-04-15 21:00 | NUR ---
PT MEDICATED AT THIS TIME. NO S/O DISTRESS. HER EYES WERE CLOSED I ENTERED THE ROOM, BUT AWOKE TO MY VOICE.
[2021-04-15 23:30] VITALS: BP 125/66
--- NOTE | 2021-04-16 00:10 | NUR ---
PT ASKED FOR ADDITIONAL SNACKS/PROVIDED.
--- NOTE | 2021-04-16 01:00 | NUR ---
PT CALLED ASKING FOR ADDITIONAL SNACK/PROVIDED FRUIT CUP, MILK AND GRANOLA BAR WITH PEANUT BUTTER.
[2021-04-16 04:00] VITALS: BP 139/77
--- NOTE | 2021-04-16 05:01 | NUR ---
LABS DRAWN AND V/S ASSESSED. PT IS NOW SLEEPING.
[2021-04-16 05:30] LABS: HEMATOCRIT 33.9 % (37.0-47.0); HEMOGLOBIN 10.7 g/dl (12.0-16.0); MEAN CELL VOLUME 98.3 fL CALC (80.0-100.0); MEAN CORPUSCULAR HGB CONC 31.6 g/dL CAL (32.0-36.0); RED BLOOD COUNT 3.45 mill/uL (4.20-5.60); RED CELL DISTRI WIDTH 14.5 % (11.5-15.5)
[2021-04-16 05:55] LABS: CREATININE 1.2 mg/dL (0.5-1.0); MAGNESIUM 1.5 mg/dL (1.6-2.3); POTASSIUM 4.1 mmol/l (3.5-5.1)
[2021-04-16 08:00] VITALS: BP 151/53
--- NOTE | 2021-04-16 08:00 | NUR ---
RESTING IN THE BED, ALERT, DENIES PAIN. IV INFUSING. NO RESP DISTRESS NOTED AT THIS TIME. REPOSITIONED FOR COMOFRT, SIDE RAILS UP CALL LIGHT IN REACH BED LOCKED IN LOW POSITION, WILL CONTINUE TO MONIOTR THE PATIENT.
--- NOTE | 2021-04-16 10:00 | NUR ---
EDUCATED ON IV MG. ENCOURAGED TO ASK QUESTION REGARDING CARE. RESTING COMFORTABLE IN THE BED, NO DISTRESS NOTED AT THIS TIME.
[2021-04-16 10:55] VITALS: BP 113/71
--- NOTE | 2021-04-16 12:00 | NUR ---
OUT OF THE BED AMB WITH PT. NO DISTRESS NOTED. ENCOURAGED TO SIT UP IN THE BED SIDE CAHIR. PT PUT SELF BACK IN BED. CALL LIGHT IN REACH. WILL CONTINUE TO MONIOTR THE PATIENT.
--- NOTE | 2021-04-16 14:04 | NUR ---
PT UPSET IV MG NOT FINNISHED. ATTEMPTED TO EXPLAIN TO THE PT, THE MEDIS ON A PUMP AND IT IS THE PUMP THAT IS INFUSING THE MEDICATION.
--- NOTE | 2021-04-16 15:11 | NUR ---
PT LEFT THE FLOOR , D/C ORDERS GIVEN BY THE PLATING MACHINE OPERATOR. IV REMOVED BY THE PLATING MACHINE OPERATOR. PT REFUSED TO SIGN HER DISCHARGE ORDER. ESCORTED OUT OF THE BUILDING.
== END 2021-04-16 15:12 | disposition home or self-care (01) ==
LOC: ED 17:11 → ED-I 23:57 → ED 04-15 00:11 → ED-I 04-15 00:12 → MS2 04-15 07:05
PROVIDERS: Family Medicine; Nurse Practitioner; ADMIT Hospitalist; ATTEND Hospitalist
DX: I95.2 Hypotension due to drugs (principal); T42.8X5A Adverse effect of antiparkinsonism drugs and other central muscle-tone depressants, initial encounter; N17.9 Acute kidney failure, unspecified; E86.0 Dehydration; I10 Essential (primary) hypertension; J44.9 Chronic obstructive pulmonary disease, unspecified; I25.10 Atherosclerotic heart disease of native coronary artery without angina pectoris; F41.9 Anxiety disorder, unspecified; S80.211A Abrasion, right knee, initial encounter; M25.552 Pain in left hip; M54.2 Cervicalgia; M54.40 Lumbago with sciatica, unspecified side; F10.10 Alcohol abuse, uncomplicated; F14.10 Cocaine abuse, uncomplicated; E66.01 Morbid (severe) obesity due to excess calories; F17.200 Nicotine dependence, unspecified, uncomplicated; W19.XXXA Unspecified fall, initial encounter; Z20.822 Contact with and (suspected) exposure to COVID-19
CPT/HCPCS: G0378; J3475

== ENCOUNTER 2023-09-18 15:16 | Observation (INO) | payer OTHER ==
[2023-09-18] VITALS (12 sets, daily range): BP systolic 108–184; BP diastolic 70–125
[~2023-09-18] VITALS: Ht 167.6 cm; Wt 105.4 kg
[~2023-09-18 15:16] MED LIST changes: +APRESOLINE50 MG PO; +BACLOFEN20 MG PO; +CARVEDILOL25 MG PO; +GABAPENTIN300 M2 PO; +ISOSORBIDE DINI20 MG PO; +LASIX 40 MG TAB40 MG PO; +LIPITOR40 M1 PO
--- NOTE | 2023-09-18 15:16 | NUR ---
PT ARRIVED EMS TO ROOM 13
--- NOTE | 2023-09-18 16:12 | NUR ---
PT AMBULATED TO BR WITH A STEADY GAIT;PT RETURNED, VS MONITORING RESUMED;NO RESPIRTOTY DISTRESS NOTED;CALL LIGHT WITHIN REACH
--- NOTE | 2023-09-18 16:46 | NUR ---
RT AT BEDSIDE FOR NEB TREATMENT
[2023-09-18 17:41] LABS: BASO% 0.4 % (0-3); EOS% 1.4 % (0-8); IMMATURE GRANULOCYTES 0.3 % (0.0-5.0); LYMPH% 42.4 % (15-41); MEAN CELL VOLUME 94.9 fL CALC (80.0-100.0); MEAN CORPUSCULAR HGB 30.2 pG CALC (26.0-32.0); MEAN CORPUSCULAR HGB CONC 31.8 g/dL CAL (32.0-36.0); MONO% 7.5 % (2-13); NEUT# 3.39 thou/uL (2.00-7.15); RED BLOOD COUNT 4.54 mill/uL (4.20-5.60); RED CELL DISTRI WIDTH 13.8 % (11.5-15.5)
[2023-09-18 17:47] LABS: HEMATOCRIT 43.1 % (37.0-47.0); HEMOGLOBIN 13.7 g/dl (12.0-16.0)
[2023-09-18 17:50] LABS: BILIRUBIN, TOTAL 0.4 mg/dL (0.02-1.3); CREATININE 1.4 mg/dL (0.5-1.0); POTASSIUM 4.4 mmol/l (3.5-5.1); TOTAL PROTEIN 7.8 g/dL (6.3-8.2)
--- NOTE | 2023-09-18 17:54 | NUR ---
PT IS RESTING IN BED WATCHING TV;NO DISTRESS NOTED;VSS;CALL LIGHT WITHIN REACH
[2023-09-18 17:59] LABS: ALBUMIN 4.3 g/dL (3.2-5.0)
[2023-09-18 18:45] LABS: URINE BILIRUBIN - DIPSTICK Negative (NEGATIVE); URINE BLOOD DIPSTICK Negative (NEGATIVE); URINE GLUCOSE - DIPSTICK Negative (NEGATIVE); URINE KETONE Negative (NEGATIVE); URINE LEUK ESTERASE Trace (NEGATIVE); URINE NITRITE - DIPSTICK Negative (Negative); URINE PROTEIN - DIPSTICK Negative (NEG-TRACE); URINE UROBILINOGEN - DIPSTICK 0.2 E.U./dL (0.2)
[2023-09-18 18:47] LABS: URINE COLOR Yellow
--- NOTE | 2023-09-18 18:54 | NUR ---
PT RESTING IN BED;EKG COMPLETED AND PT MEDICATED PER ORDERS;VSS;NO DISTRESS NOTED;CALL LIGHT WITHIN REACH;BEDSIDE COMMODE WILL BE PLACED PER PT REQUEST
--- NOTE | 2023-09-18 19:00 | NUR ---
RECIEVED REPORT FROM DIANA PARKER AT THIS TIME, CARE ASSUMED, PATIENT UP TO RESTROOM FOR VOID AT THIS TIME, PATIENT UPDATED ON CONTINUOUS PLAN OF CARE WITH NO FURTHER QUESTIONS OR CONCERNS AT THIS TIME, PATIENT AWAITING ROOM ASSIGNMENT UPSTAIRS.
--- NOTE | 2023-09-18 20:10 | NUR ---
REPORT GIVEN TO DIANA JONES ON MS2, PATIENT UPDATED ON CONTINUOUS PLAN OF CARE, AWAITING TRANSPORT TO FLOOR AT THIS TIME.
--- NOTE | 2023-09-18 20:30 | NUR ---
PATIENT TRANSPORTED TO MS2 AT THIS TIME VIA W/C WITH STEADY GAIT, PATIENT COLLECTED ALL EBLONGINGS AND AMBULATORY TO BED ON MS2, NURSE/LEAD CARE MANAGER NOTIFIED OF PATIENT.
--- NOTE | 2023-09-18 23:32 | NUR ---
PT RECEIVED FROM ER VIA AT 2044. ALERT AND ORIENTED X 3. RESPIRATIONS ARE EVEN AND NON LABORED. AMBULATED TO STAND UP SCALE WITHOUT DIFFICULTY. ORIENTED PT TO ROOM, CALL LIGHT, BATHROOM. ON TELE. TOP BED RAILS UP. BED IS LOCKED. CALL LIGHT IN REACH
[2023-09-19] VITALS (8 sets, daily range): BP systolic 134–181; BP diastolic 77–101
--- NOTE | 2023-09-19 02:57 | NUR ---
pt sleeping intermittently. ambulates to bathroom ad liu. voiding without difficulty. respirations are even, non labored. on tele nsr. safety precautions maintained. call light in reach
--- NOTE | 2023-09-19 05:28 | NUR ---
PT AWAKE. REQUESTING SNACKS. RESPIRATIONS ARE EVEN/NON LABORED.VSS. SAFETY PRECAUTIONS MAINTAINED. CALL LIGHT IN REACH
[2023-09-19 06:51] LABS: BASO% 0.3 % (0-3); EOS% 0.3 % (0-8); HEMATOCRIT 38.6 % (37.0-47.0); HEMOGLOBIN 12.5 g/dl (12.0-16.0); IMMATURE GRANULOCYTES 0.3 % (0.0-5.0); LYMPH% 23.3 % (15-41); MEAN CELL VOLUME 93.5 fL CALC (80.0-100.0); MEAN CORPUSCULAR HGB 30.3 pG CALC (26.0-32.0); MEAN CORPUSCULAR HGB CONC 32.4 g/dL CAL (32.0-36.0); MONO% 8.1 % (2-13); NEUT# 5.43 thou/uL (2.00-7.15); NEUT% 67.7 % (42-76); RED BLOOD COUNT 4.13 mill/uL (4.20-5.60); RED CELL DISTRI WIDTH 13.6 % (11.5-15.5)
[2023-09-19 07:13] LABS: ALBUMIN 3.8 g/dL (3.2-5.0); ALKALINE PHOSPHATASE 55 u/l (38-126); ANION GAP 16 (6-22 (CALC)); BILIRUBIN, TOTAL 0.3 mg/dL (0.02-1.3); BUN 27 mg/dL (7-17); BUN/CREATININE RATIO 24 (12-20 (CALC)); CARBON DIOXIDE 21 mmol/l (22-30); CHLORIDE 107 mmol/l (95-108); CREATININE 1.1 mg/dL (0.5-1.0); GFR FOR AFR.AMER. > 60 ML/MIN (>=60 (CALC)); GFR OTHER RACES 51 ML/MIN (>=60 (CALC)); POTASSIUM 4.1 mmol/l (3.5-5.1); SGOT/AST 24 u/l (14-36); SODIUM 140 mmol/l (137-146); TOTAL PROTEIN 6.8 g/dL (6.3-8.2)
--- NOTE | 2023-09-19 07:29 | NUR ---
RT AT BEDSIDE ADMINISTERING BREATHING TX.
[2023-09-19 07:30] LABS: MAGNESIUM 1.9 mg/dL (1.6-2.3)
--- NOTE | 2023-09-19 07:45 | NUR ---
PT AOx3, denies pain at this time, bp 134/83, no SOB, pt states she quit smoking a week ago.
--- NOTE | 2023-09-19 09:12 | NUR ---
BARBI,ANRP AT BEDSIDE DISCUSSING POC WITH PT.
--- NOTE | 2023-09-19 10:29 | NUR ---
AT BEDSIDE DISCUSSING POC WITH PT.
[2023-09-19] MEDS ORDERED: APRESOLINE50 MG PO (11:10)
[2023-09-19] MEDS ORDERED: COZAAR50 MG PO (11:11)
[2023-09-19] MEDS ORDERED: LASIX 40 MG TAB40 MG PO (11:11)
[2023-09-19] MEDS ORDERED: LIPITOR40 M1 PO (11:11)
[2023-09-19] MEDS ORDERED: ISOSORBIDE DINI20 MG PO (11:11)
[2023-09-19] MEDS ORDERED: CARVEDILOL25 MG PO (11:11)
[2023-09-19] MEDS ORDERED: OMEPRAZOLE DR40 MG PO (11:12)
--- NOTE | 2023-09-19 12:38 | NUR ---
RT AT BEDSIDE ADMINISTERING BREATHING TX.
--- NOTE | 2023-09-19 13:46 | NUR ---
DISCHARGE INSTRUCTIONS REVIEWED WITH PATIENT. IV DC'D, TELE MONITOR REMOVED AND PLACED IN BOX AT NURSES STATION.
--- NOTE | 2023-09-19 13:52 | NUR ---
Discharge instructions given. Patient verbalizes understanding of same. Discharged in stable condition via Wheelchair to Home with *Other. All belongings sent with pt. PT TRANSPORTED TO [facility] IN STABLE CONDITION VIA ACCOMPANIED BY MEE BUSH. ALL PERSONAL BELONGINGS LEFT WITH PT.FAMILY TO TRANSPORT PT HOME.
--- NOTE | 2023-09-20 11:05 | NUR ---
Discharge follow up call completed today, 09/20/23. Pt states she is ddoing well and has had no difficulties since her discharge. Pt is taking prescribed medication without issue. She will call PCP today to schedule a follow up appointment. No needs or concerns verbalized at this time.
== END 2023-09-19 13:53 | disposition home or self-care (01) ==
LOC: ED 15:16 → MS2 18:38
PROVIDERS: Emergency Medicine; ADMIT Student in an Organized Health Care Education/Training Program; ATTEND Student in an Organized Health Care Education/Training Program
DX: I11.0 Hypertensive heart disease with heart failure (principal); I50.23 Acute on chronic systolic (congestive) heart failure; I42.7 Cardiomyopathy due to drug and external agent; J44.9 Chronic obstructive pulmonary disease, unspecified; F14.10 Cocaine abuse, uncomplicated; F41.9 Anxiety disorder, unspecified; I25.10 Atherosclerotic heart disease of native coronary artery without angina pectoris; I25.2 Old myocardial infarction; F17.210 Nicotine dependence, cigarettes, uncomplicated; T50.916A Underdosing of multiple unspecified drugs, medicaments and biological substances, initial encounter; Z91.128 Patient's intentional underdosing of medication regimen for other reason
CPT/HCPCS: G0378